=== PATIENT | male | born 1935 | race Hispanic/Latino ===

== ENCOUNTER 2018-05-19 09:26 | Day surgery (SDC) | payer MEDICARE, OTHER ==
[~2018-05-19 09:26] MED LIST: ANCEF/STERILE WATER 2 GM/20 ML 2 GM/20 ML SYRINGE IV NR; NACL 0.9% 1000 ML 1,000 ML IV SCH
[2018-05-19 10:29] LABS: Basophils % (Auto) 0.2 % (0.0-1.8); Eosinophils # (Auto) 0.2 K/mm3 (0.0-0.4); Eosinophils % (Auto) 3.7 % (0.0-4.3); Hematocrit 45.3 % (35.5-45.6); Hemoglobin 15.9 gm/dl (11.8-15.2); Lymphocytes # (Auto) 1.5 K/mm3 (1.2-5.4); Lymphocytes % (Auto) 27.9 % (13.4-35.0); Mean Corpuscular HGB Conc 35 % (32-34); Mean Corpuscular Hemoglobin 36 pg (28-32); Mean Corpuscular Volume 103 fl (84-94); Monocytes # (Auto) 0.6 K/mm3 (0.0-0.8); Monocytes % (Auto) 11.4 % (0.0-7.3); Platelet Count 153 K/mm3 (140-440); Red Cell Distribution Width 12.6 % (13.2-15.2)
[2018-05-19 10:37] LABS: INR 1.02 (0.87-1.13)
[2018-05-19 10:38] LABS: Partial Thromboplastin Time 30.9 Sec. (24.2-36.6)
[2018-05-19 10:52] LABS: Alanine Aminotransferase 18 units/L (7-56); Albumin 4.1 g/dL (3.9-5); BUN/Creatinine Ratio 13; Blood Urea Nitrogen 10 mg/dL (9-20); Calcium 8.6 mg/dL (8.4-10.2); Hemolysis Index 12
[2018-05-19] MEDS ORDERED: HEPARIN 10,000 UNITS/10 ML ONE (13:00)
[2018-05-19] MEDS ORDERED: VERSED ONE (13:00)
[2018-05-19] MEDS ORDERED: SUBLIMAZE ONE (13:00)
[2018-05-19] MEDS ORDERED: XYLOCAINE 2% INFILTRATI ONE (13:01)
[2018-05-19] MEDS: ANCEF/STERILE WATER 2 GM/20 ML 2 GM/20 ML SYRINGE IV ONE ×2 (13:30→13:35)
[2018-05-19] MEDS: HEPARIN/NS 5000 UNIT/500ML(CATH LAB) 1,000 ML IR ONE ×2 (13:30→13:35)
[2018-05-19] MEDS ORDERED: TORADOL ONE (13:37)
--- NOTE | 2018-05-19 14:03 | Short Stay Summary ---
Short Stay Documentation Date of service: 05/19/18 - History Principal diagnosis: Venous hypertension of BLE, Compression of vein H&P: obtained from office - Allergies and Medications Current Medications: Allergies No Known Allergies Allergy (Verified 05/19/18 10:10) Home Medications Medication Instructions Recorded Confirmed Last Taken Type Amiodarone HCl [Pacerone] 200 mg PO 3XW 05/19/18 05/19/18 05/17/18 History 200mg Atenolol 50 mg PO DAILY 05/19/18 05/19/18 05/18/18 History 50mg Dorzolamide HCl [Trusopt] 2 drops INTRAOCULA BID 05/19/18 05/19/18 05/19/18 History 2 drops Latanoprost 0.005% 2 drop INTRAOCULA BID 05/19/18 05/19/18 05/19/18 History 2 drops Levothyroxine [Synthroid] 88 mcg PO DAILY 05/19/18 05/19/18 05/19/18 History 88mcg Omeprazole 20 mg PO DAILY 05/19/18 05/19/18 05/18/18 History 20mg Primidone [Mysoline] 250 mg PO BID 05/19/18 05/19/18 05/18/18 History 250mg Active Medications Cefazolin Sodium (Ancef/Sterile Water 2 Gm/20 Ml) 2 gm in 20 mls @ 80 mls/hr IV PREOP NR; Protocol Stop: 05/19/18 23:59 Sodium Chloride (Nacl 0.9% 1000 Ml) 1,000 mls @ 42 mls/hr IV DIRECT MARLENE Last Admin: 05/19/18 11:18 Dose: 42 mls/hr - Brief post op/procedure progress note Date of procedure: 05/19/18 Pre-op diagnosis: Venous hypertension of BLE, Compression of vein Post-op diagnosis: same Procedure: BLE venogram and stent placement Anesthesia: local Surgeon: MARLYS RODRIGUEZ Estimated blood loss: minimal Pathology: none Condition: stable - Disposition Condition at discharge: Good Disposition: [id number] TO HOME OR SELFCARE Short Stay Discharge Plan Activity: advance as tolerated Weight Bearing Status: Weight Bear as Tolerated Diet: regular Wound: keep clean and dry, per your surgeon's advice Follow up with: LEANDRO ALAN MD [Primary Care Provider] - 7 Days
--- NOTE | 2018-05-19 14:11 | Operative Report ---
Operative Report Operative Report: Exam: Bilateral lower extremity venogram, intravascular ultrasound and stent placement with venoplasty Clinical indication: Patient with venous hypertension and extrinsic compression of bilateral common iliac and external iliac veins Date: 05/19/2018 Procedure: Following an explanation of the risks, benefits and alternatives; written informed consent was obtained. The patient was brought to the angiographic suite and placed in supine position on the examination table. Initial ultrasound evaluation of his legs demonstrated patent femoral veins bilaterally. The legs were prepped from groin to mid thigh bilaterally. 1% lidocaine was used for anesthesia. Under ultrasound guidance, a 7 cm 18-gauge needle was advanced at the right femoral vein proximally. A 0.035 guidewire was advanced centrally under fluoroscopy. The needle was removed and a 5 [place] sheath placed. Access to the left femoral vein was obtained in a similar fashion proximally and a second 5 [place] sheath placed. Angiography performed through bilateral sheaths demonstrated multifocal stenosis in both the bilateral common and bilateral external iliac veins. Post surgical changes are also present within the lower back. The 5 [place] sheaths were upsized to 10 [place] she's over the 0.035 guidewire. Intravascular ultrasound was then performed through the right sheath from the IVC, right common iliac vein, right external iliac vein and right common femoral vein. This demonstrates an 80% stenosis at the right common iliac vein with prestenotic dilatation. A separate 60% stenosis is present within the right external iliac vein. The right common femoral vein is patent. Intravascular ultrasound was then performed through the left sheath from the IVC , left common iliac vein, left external iliac vein and left common femoral vein. This demonstrates a 70% stenosis of the left common iliac vein with prestenotic dilatation. A separate 70% stenosis is present within the left external iliac vein. A 16 X 90 mm Wallstent was advanced through the right [place] and deployed to exclude the right external iliac vein lesion. A separate 16 x 90 mm Wallstent was advanced through the left sheath and deployed to exclude the left external iliac lesion. Stents were then seated using 14 mm x 40 mm balloons insufflated at multiple locations phenomenal atmospheres. The 16 x 40 mm Wallstent was advanced through the right sheath. 2-3 cm of overlap within the previously placed stent was performed and this stent deployed across the right common iliac vein lesion into the distal IVC. A second 16 x 40 mm Wallstent was advanced through the left sheath. There is 2-3 cm of overlap within the previously placed stent in the stent was deployed across the left common iliac vein lesion into the distal IVC. Both stents were then seated using 14 mm balloons insufflated in kissing fashion. Post stent deployment venography demonstrated brisk flow throughout the iliac veins with residual 0% stenosis involving the right common iliac vein, right external iliac vein, left common iliac vein and left external iliac vein. The guidewires and she's were removed and hemostasis was achieved using manual compression. Sterile compressive dressings were then applied. The patient tolerated the procedure well. There were no immediate post procedure complications. Conscious sedation was performed under the guidance of radiologic nursing. Continuous cardiopulmonary monitoring was utilized. Impression: 1) Bilateral lower extremity venogram demonstrating multifocal stenosis within the bilateral common iliac vein, bilateral external iliac veins. 2) Iintravascular ultrasound performed as described with imaging obtained of the IVC, right common iliac vein, right external iliac vein, right common femoral vein, left common iliac vein, left external iliac vein and left common femoral vein. An 80% stenosis is present within the right common iliac vein, a separate 60% stenosis is present within the right external iliac vein, a 70% stenosis is present within the left common iliac vein and a separate 70% stenosis is present within the left external iliac vein. 3) Placement of 16 mm x 40 mm wall stents to exclude the common iliac vein lesions bilaterally, placement of 16 mm x 90 mm wall stents to exclude the external iliac vein lesions bilaterally with 2-3 cm of overlap between the stents. 4) Residual 0% stenosis of the right common iliac vein, right external iliac vein, left common iliac vein and left external iliac vein.
[2018-05-19 16:52] VITALS: BP 157/88
== END 2018-05-19 09:27 | disposition home or self-care (01) ==
LOC: CATHLABREC 09:26
PROVIDERS: ATTEND Radiology Diagnostic Radiology
DX: I87.1 Compression of vein (principal); I87.323 Chronic venous hypertension (idiopathic) with inflammation of bilateral lower extremity; I48.91 Unspecified atrial fibrillation; G62.9 Polyneuropathy, unspecified; I87.2 Venous insufficiency (chronic) (peripheral); Z79.899 Other long term (current) drug therapy; Z87.891 Personal history of nicotine dependence; Z85.46 Personal history of malignant neoplasm of prostate; Z98.890 Other specified postprocedural states
CPT/HCPCS: 36415; 37238; 37239; 37252; 37253; 76937; 80053; 85025; 85610; 85730; C1725; C1769; C1876; C1894; J0690; J1644; J1885; J2250; J3010; J7030; Q9967